=== PATIENT | female | born 1950 | race Caucasian/White ===

== ENCOUNTER → 2016-08-07 | Outpatient (CLI) | payer MEDICARE, OTHER ==
[~2016-08-07] MED LIST: ARAVA20 MG PO; CALTRATE 600 +1 EAC1 PO; DOXYCYCLINE MO100 MG PO; ENTRESTO PO; FERROUS SULFAT325 MG PO; FLUTICASONE PRO16 GM; HYDROXYZINE HCL25 MG PO; LASIX40 MG PO; LEVAQUIN500 MG PO; LORCET PLUS 7.1 EACH PO; MEGACE400 MG/10 PO; METOPROLOL TART25 MG PO; OMEPRAZOLE20 M1 PO; PREDNISONE5 MG PO; SIMVASTATIN20 MG PO; SULFASALAZINE500 MG PO; VITAMIN D5000 UNIT PO
== END ==
LOC: KOH-I 09:00
DX: N18.3 Chronic kidney disease, stage 3 (moderate) (principal)
CPT/HCPCS: 76775

== ENCOUNTER → 2020-06-30 | Outpatient (CLI) | payer MEDICARE, OTHER ==
[~2020-06-30] MED LIST changes: +CALTRATE 600MG600 MG PO; +CENTRUM COMPLE1 EACH PO; +CLARITIN10 MG PO; +ENTRESTO 49 MG1 EACH PO; +EYE DROPS OU; +FORTEO 250250 MCG/ML SC; +KEFLEX750 MG PO; +OMEPRAZOLE20 MG PO; +SYNTHROID25 MCG PO; +TYLENOL 500 MG500 MG PO
== END ==
LOC: EXRD 15:01
DX: M79.671 Pain in right foot (principal); M85.871 Other specified disorders of bone density and structure, right ankle and foot; M19.071 Primary osteoarthritis, right ankle and foot
CPT/HCPCS: 73630

== ENCOUNTER → 2020-08-19 | Outpatient (CLI) | payer MEDICARE, OTHER ==
[2020-08-19 09:20] LABS: HEMOGLOBIN 9.5 gm/dl (12.3-15.3); RED BLOOD COUNT 4.19 M/UL (4.00-5.10); WHITE BLOOD COUNT 7.9 K/UL (4.5-11.0)
== END ==
LOC: MAMO 08-03 08:00
PROVIDERS: Nurse Practitioner Family
DX: Z12.31 Encounter for screening mammogram for malignant neoplasm of breast (principal); I10 Essential (primary) hypertension; E03.9 Hypothyroidism, unspecified; E55.9 Vitamin D deficiency, unspecified; E78.5 Hyperlipidemia, unspecified
CPT/HCPCS: 36415; 77063; 77067; 80053; 80061; 81001; 84439; 84443; 85025

== ENCOUNTER 2020-09-05 18:31 | Emergency (ER) | payer MEDICARE, OTHER ==
[~2020-09-05 18:31] MED LIST changes: -KEFLEX750 MG PO
[2020-09-05 19:41] LABS: HEMOGLOBIN 9.4 gm/dl (12.3-15.3); RED BLOOD COUNT 4.14 M/UL (4.00-5.10)
[2020-09-05 20:04] LABS: BUN/CREATININE RATIO 22 (0-10)
[2020-09-05] MEDS ORDERED: KEFLEX750 MG PO (22:17)
== END 2020-09-05 22:29 | disposition home or self-care (01) ==
LOC: ER1 18:31
PROVIDERS: Family Medicine
DX: N39.0 Urinary tract infection, site not specified (principal); R47.81 Slurred speech; R41.82 Altered mental status, unspecified; I48.91 Unspecified atrial fibrillation; I10 Essential (primary) hypertension; Z90.49 Acquired absence of other specified parts of digestive tract
CPT/HCPCS: 70450; 71045; 80053; 80307; 81001; 82550; 82553; 83874; 84484; 85025; 93005; 99285

== ENCOUNTER → 2020-10-21 | Outpatient (CLI) | payer MEDICARE, OTHER ==
[~2020-10-21] MED LIST changes: +KEFLEX750 MG PO
== END ==
LOC: EXRD 10-19 09:30
DX: R47.01 Aphasia (principal); E78.5 Hyperlipidemia, unspecified; R10.9 Unspecified abdominal pain; I65.23 Occlusion and stenosis of bilateral carotid arteries
CPT/HCPCS: 76700; 93880

== ENCOUNTER → 2021-01-09 | Outpatient (CLI) | payer MEDICARE, OTHER | LOC: EMI 09:30 | DX: R47.9 Unspecified speech disturbances (principal); G93.89 Other specified disorders of brain | CPT/HCPCS: 70551 ==

== ENCOUNTER → 2021-09-28 | Outpatient (CLI) | payer MEDICARE, OTHER ==
[2021-09-28 12:08] LABS: HEMOGLOBIN 10.6 gm/dl (12.3-15.3); RED BLOOD COUNT 4.37 M/UL (4.00-5.10); WHITE BLOOD COUNT 8.7 K/UL (4.5-11.0)
== END ==
LOC: LAB 11:09
PROVIDERS: Internal Medicine Rheumatology
DX: Z51.81 Encounter for therapeutic drug level monitoring (principal); M05.79 Rheumatoid arthritis with rheumatoid factor of multiple sites without organ or systems involvement; Z79.899 Other long term (current) drug therapy
CPT/HCPCS: 36415; 80053; 85025; 85652; 86140

== ENCOUNTER → 2021-10-12 | Outpatient (CLI) | payer MEDICARE, OTHER ==
[2021-10-13 10:15] LABS: CREATININE, URINE 174.9 mg/dL (Not Estab.)
== END ==
LOC: US 10:33
PROVIDERS: Internal Medicine Nephrology
DX: N18.9 Chronic kidney disease, unspecified (principal)
CPT/HCPCS: 36415; 80053; 81001; 82043; 82570; 84156